=== PATIENT | male | born 1965 | race African-American/Black ===

== ENCOUNTER 2018-04-03 04:34 | Emergency (ER) | payer OTHER ==
[2018-04-03 04:41] VITALS: BP 137/90; PULSE 79; TEMP 97.7; BMI 32.3
--- NOTE | 2018-04-03 04:41 | PDOC ---
History of Present Illness - General Chief Complaint: Colic Stated Complaint: GAS Time Seen by Provider: 04/03/18 04:40 - History of Present Illness Initial Comments: 04/03/18 05:25 This 52-year-old man with a history of hypertension (not currently being treated ) presents with intermittent suprapubic abdominal distention. Patient has been on diet of meat, vegetables and fruit only for the last 6 weeks. He also states that he drinks a lot of carbonated beverages He states that this diet has made him somewhat "gassy". He intermittently that the suprapubic region of his abdomen is distended, especially if these standing for long periods of time. He denies pain or tenderness in the area. He has normal bowel movements on the average of once per day. He has not had nausea/vomiting. He denies dysuria/urinary frequency or urgency/hematuria or penile discharge. He has no family history of colon cancer or other gastrointestinal diseases. He has no history of having colonoscopy Past History - Past Medical History Allergies/Adverse Reactions: Allergies Allergy/AdvReac Type Severity Reaction Status Date / Time No Known Allergies Allergy Verified 08/11/15 10:43 Home Medications: Ambulatory Orders Unobtainable 04/03/18 HTN: Yes - Immunization History Td Vaccination: No Immunization Up to Date: No - Suicide/Smoking/Psychosocial Hx Smoking Status: No Smoking History: Never smoked Have you smoked in the past 12 months: No Number of Cigarettes Smoked Daily: 0 Hx Alcohol Use: No Drug/Substance Use Hx: No Substance Use Type: None Review of Systems - Review of Systems Comments:: 12 point review of systems is negative except for what is noted in the history of present illness *Physical Exam - Physical Exam Comments: GENERAL: Adult male, alert and oriented 3, in no acute distress HEAD: Normal with no signs of trauma. EYES: PERRLA, EOMI, sclera anicteric, conjunctiva clear. ENT: Ears normal, nares patent, oropharynx clear without exudates. Moist mucous membranes. NECK: Normal range of motion, supple without lymphadenopathy, JVD, or masses. LUNGS: Breath sounds equal, clear to auscultation bilaterally. No wheezes, and no crackles. HEART:Regular rate and rhythm, normal S1 and S2 without murmur, rub or gallop. ABDOMEN:.normal bowel sounds; soft and nondistended No guarding,tenderness or rebound.No masses. EXTREMITIES: Normal range of motion, no edema. No clubbing or cyanosis. No erythema, or tenderness. NEUROLOGICAL: Cranial nerves II through XII grossly intact. Normal speech. No focal neurological deficits. MUSCULOSKELETAL: Back non-tender to palpation, no CVA tenderness SKIN: Warm, Dry, normal turgor, no rashes or lesions noted. Medical Decision Making - Medical Decision Making This 52-year-old man with a history of hypertension, currently not being treated presents with sensation of suprapubic fullness and generalized increased "gassiness" in the last few weeks. Patient has been on unusual diet ( to lose weight) for the last 6 weeks: Meat/vegetables/fruit only along with consumption of carbonated beverages.. There is been no change in his bowel habits and he denies nausea/vomiting. He has had no abdominal pain or discomfort. Exam is normal as noted. Patient is reassured that his exam is normal and that his symptoms of fullness and increased "gas" is likely related to his diet. He can consider changing his diet and stop drinking carbonated beverages.Dr Campbell's referral information given to him : he has not had his age 50 screening colonoscopy yet. He should plan on having this performed in the near future. He should return to the ER if he develops abdominal pain/vomiting *DC/Admit/Observation/Transfer Diagnosis at time of Disposition: Abdominal distension, gaseous - Discharge Dispostion Disposition: HOME Condition at time of disposition: Stable - Referrals Referrals: Javi Campbell MD [Staff Physician] - - Patient Instructions Printed Discharge Instructions: How to Avoid Gas Additional Instructions: Avoid carbonated beverages Consider probiotics as discussed Consider change in diet as discussed Return to ER if you have severe abdominal pain or vomiting Follow-up with extrusion press operator (Dr. Campbell) within the next 1-2 weeks - Post Discharge Activity
== END 2018-04-03 05:27 | disposition home or self-care (01) ==
LOC: FER 04:34
DX: R14.0 Abdominal distension (gaseous) (principal); I10 Essential (primary) hypertension
CPT/HCPCS: 99281-25

== ENCOUNTER 2018-08-23 21:55 | Emergency (ER) | payer OTHER ==
[2018-08-23 22:03] VITALS: BP 125/84; PULSE 82; TEMP 97.7; BMI 32.5
--- NOTE | 2018-08-23 22:27 | PDOC ---
Documentation entered by Louie Burgos SCRIBE, acting as scribe for Deyanira Arevalo MD. Deyanira Arevalo MD: This documentation has been prepared by the Loretta bourne Renju, SCRIBE, under my direction and personally reviewed by me in its entirety. I confirm that the documentation accurately reflects all work, treatment, procedures, and medical decision making performed by me. History of Present Illness - General Chief Complaint: Pain, Acute Stated Complaint: SWELLING PAIN TO LEFT MIDDLE FINGER Time Seen by Provider: 08/23/18 21:59 History Source: Patient Exam Limitations: No Limitations - History of Present Illness Initial Comments: 08/23/18 22:21 The patient is a right hand dominant 52 year old male with h/o HTN and gout who presents to the emergency department for evaluation of worsening left third digit pain with swelling x 2 weeks. 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 He denies breaking skin at the time of the incident. Denies numbness and tingling in the left hand. Denies fevers, chills, and discharge from the affected finger. Denies fever, chills, dizziness, weakness, N, V. no weakness or paresthesias Allergies: None Past Medical History: HTN, Social history: Employed as a flight line mechanic. Lives with family. No tobacco, ETOH or drug use. Surgical history: Retinal detachment Meds: as documented in EMR 08/23/18 22:25 08/23/18 22:50 Past History - Past Medical History Allergies/Adverse Reactions: Allergies Allergy/AdvReac Type Severity Reaction Status Date / Time No Known Allergies Allergy Verified 08/23/18 21:56 Home Medications: Ambulatory Orders Unobtainable 04/03/18 COPD: No HTN: Yes - Immunization History Td Vaccination: No Immunization Up to Date: No - Suicide/Smoking/Psychosocial Hx Smoking Status: No Smoking History: Never smoked Have you smoked in the past 12 months: No Number of Cigarettes Smoked Daily: 0 Information on smoking cessation initiated: No Hx Alcohol Use: No Drug/Substance Use Hx: No Substance Use Type: None Review of Systems - Review of Systems Able to Perform ROS?: Yes Comments:: 08/23/18 22:21 Constitutional: no fevers or chills. MUSCULOSKELETAL: (+)Left third digit pain. (+)Left third digit swelling. No joint pain. No muscle pain/arthralgias. Back: no back pain SKIN: no redness or skin changes, no discharge, no rash. No wounds. Hematologic: no easy bruising/bleeding. NEUROLOGIC: No weakness, numbness or tingling. Allergic/Immunologic: no allergies All other systems reviewed and negative, or as documented in HPI. *Physical Exam - Vital Signs Last Vital Signs Temp Pulse Resp BP Pulse Ox 97.7 F 82 16 125/84 98 08/23/18 21:58 08/23/18 21:58 08/23/18 21:58 08/23/18 21:58 08/23/18 21:58 - Physical Exam Comments: 08/23/18 22:22 General: NAD, well appearing Vascular: 2+ radialis pulses symmetric and equal. Neuro: distal quality management coordinator strength 5/5. sensation grossly intact in median/radial/ ulnar distribution. MSK: (+)Left distal middle finger radial aspect adjacent to finger nailbed, dorsally, with area of swelling and tenderness. No surrounding erythema, warmth , or discharge to area. Central area of punctate discoloration. soft compartments, Cap refill <2 sec. 2+ radialis pulses bilaterally and symmetric. FDP/FDS intact. no joint tenderness. FROM. nail bed and germinal matrix intact Skin: color normal color, warm and well perfused. no ecchymosis or erythema, no tenderness or lacerations 08/23/18 22:25 08/23/18 22:50 Procedures - Incision and Drainage I&D Site: Left: Paronychia (left middle finger, distal, dorsal aspect) Betadine cleansed: Yes Anesthesia: 1% Lidocaine Volume(ml): 4 Blade Size: 15 Attempts: 1 Plain Packing: No Complications: none Dressing: Yes Progress: 08/23/18 22:53 Verbal consent were obtained. The indication for the procedure was clinical suspicion for an abscess/paronychia. The region was anesthetized with local anesthetic 1% lidocaine, digital block to left middle finger. The most fluctuant portion of the abscess was incised with an 15 blade scalpel. small amount of purulence expelled. topical bacitracin and bandaid. I was present for this entire procedure and there were no complications. 08/23/18 22:58 Medical Decision Making - Medical Decision Making 08/23/18 22:26 hpi as documented VS reviewed, wnl. no systemic sx DDX, paronychia, felon, infection, callus, gout doubt FB or fx, no neuro changes/deficits; no indication for xray imaging without direct trauma or neuro changes neuro intact, median/radial/ulnar FDS/FDP intact, soft compartment, doubt compartment. analgesia, local digital block of left finger, pus removed, small amount, c/w paronychia see procedure note. DC stable condition, wound care instructions, return precautions for infection. warm soaks, analgesia and care of the paronychia. no indication for abx use, no systemic findings. pt agreeable to impression and plan. 08/23/18 22:51 *DC/Admit/Observation/Transfer Diagnosis at time of Disposition: Paronychia of left middle finger - Discharge Dispostion Disposition: HOME Condition at time of disposition: Stable Decision to Admit order: No - Referrals - Patient Instructions Printed Discharge Instructions: DI for Paronychia Additional Instructions: You have had an abscess drained in the Emergency Department, involving your finger called PARONYCHIA You may shower with the dressing in place - let the soapy water clean your wound , do not scrub at it. you can do warm soaks 4 times a day. Keep your wound covered to prevent transmission of infection to other people. Follow up with your primary care physician or in the Emergency Department in 2-3 days for a wound check. Return to the Emergency Department immediately if you develop any of the following symptoms: Fevers, Increased redness or swelling around where your abscess was, Increased pain, or Generalized weakness or vomiting Please Keep the wound covered and dry. Once a day: wash the wound with soap/ water, apply bacitracin or neosporin and re-cover the wound. If you have any worsening of symptoms, including fevers, chills, severe pain/swelling/numbness/ changes in sensation/weakness, redness which expands more than it is right now or any other concerns please return to the ED immediately. - Post Discharge Activity
== END 2018-08-23 23:00 | disposition home or self-care (01) ==
LOC: FER 21:55
PROC: 0H9QXZZ Drainage of Finger Nail, External Approach (ICD-10-PCS; principal; 2018-08-23)
DX: L03.012 Cellulitis of left finger (principal)
CPT/HCPCS: 99281-25

== ENCOUNTER 2021-11-18 00:44 | Emergency (ER) | payer OTHER ==
[2021-11-18 00:52] VITALS: BP 143/102; PULSE 87; RESP 17; TEMP 99; BMI 34.2
[2021-11-18] MEDS ORDERED: DOXYCYCLINE HYCLATE 100 MG CAPSULE PO ONE ×2 (01:15→01:18)
== END 2021-11-18 01:31 | disposition home or self-care (01) ==
LOC: FER 00:44
PROC: 3E023GC Introduction of Other Therapeutic Substance into Muscle, Percutaneous Approach (ICD-10-PCS; principal; 2021-11-18)
DX: N34.2 Other urethritis (principal)
CPT/HCPCS: 36415; 87086; 87186; 87491; 87591; 99284-25

== ENCOUNTER 2023-01-13 07:08 | Emergency (ER) | payer OTHER ==
[2023-01-13 07:18] VITALS: BP 139/98; PULSE 70; RESP 16; TEMP 98; BMI 32.6
[2023-01-13] MEDS ORDERED: DOXYCYCLINE HYCLATE 100 MG CAPSULE PO ONE ×2 (07:26→07:38)
[2023-01-13] MEDS ORDERED: CEFTRIAXONE 500 MG in DEXTROSE 5%-WATER - 50 ML IM ONE (07:26)
[2023-01-13 08:39] LABS: EPITHELIAL CELLS 0-5 /hpf
== END 2023-01-13 07:52 | disposition home or self-care (01) ==
LOC: FER 07:08
DX: R30.0 Dysuria (principal)
CPT/HCPCS: 36415; 81003; 81015; 87086; 87491; 87591; 87661; 99284-25

== ENCOUNTER 2023-02-05 04:32 | Emergency (ER) | payer OTHER ==
[2023-02-05 04:37] VITALS: BP 158/100; PULSE 83; RESP 16; TEMP 98; BMI 34.2
[2023-02-05] MEDS ORDERED: CLINDAMYCIN HCL 150 MG CAPSULE (FP) PO ONE (04:50)
[2023-02-05] MEDS ORDERED: CLINDAMYCIN HCL 150 MG CAPSULE (FP) ONE (04:54)
== END 2023-02-05 05:02 | disposition home or self-care (01) ==
LOC: FER 04:32
DX: R22.1 Localized swelling, mass and lump, neck (principal); T78.40XA Allergy, unspecified, initial encounter; R59.0 Localized enlarged lymph nodes
CPT/HCPCS: 99283-25

== ENCOUNTER 2023-05-18 01:37 | Emergency (ER) | payer OTHER ==
[2023-05-18 01:52] VITALS: BP 154/98; PULSE 86; RESP 14; TEMP 97.6; BMI 32.5
== END 2023-05-18 01:55 | disposition home or self-care (01) ==
LOC: FER 01:37
DX: R22.32 Localized swelling, mass and lump, left upper limb (principal); M79.645 Pain in left finger(s)
CPT/HCPCS: 99282-25

== ENCOUNTER 2023-08-11 04:53 | Emergency (ER) | payer OTHER ==
[2023-08-11 05:03] VITALS: BP 149/110; PULSE 73; RESP 16; TEMP 97.6; BMI 34.2
[2023-08-11 08:17] LABS: EPITHELIAL CELLS 0-5 /hpf
== END 2023-08-11 05:31 | disposition home or self-care (01) ==
LOC: FER 04:53
DX: N34.2 Other urethritis (principal); R30.0 Dysuria
CPT/HCPCS: 36415; 81003; 81015; 87086; 87491; 87591; 99283-25